=== PATIENT | male | born 1950 | race Caucasian/White ===

== ENCOUNTER → 2019-04-06 | Outpatient (CLI) | payer MEDICARE, OTHER ==
[2019-04-06 13:45] LABS: BLOOD UREA NITROGEN 14 MG/DL (7-18); CALCIUM LEVEL 9.2 MG/DL (8.8-10.2); CARBON DIOXIDE LEVEL 29 MEQ/L (21-32); CHLORIDE LEVEL 103 MEQ/L (98-107); CREATININE FOR GFR 1.08 MG/DL (0.70-1.30); GLOMERULAR FILTRATION RATE > 60.0 (>42); GLUCOSE, FASTING 97 MG/DL (70-100); POTASSIUM SERUM 4.2 MEQ/L (3.5-5.1); SODIUM LEVEL 139 MEQ/L (136-145)
[2019-04-06 14:51] LABS: BASO # 0.1 10^3/uL (0.0-0.2); BASO % 1.1 % (0.0-1.0); EOS # 0.3 10^3/uL (0.0-0.5); EOS % 3.9 % (0.0-3.0); HEMATOCRIT 40.9 % (42.0-52.0); HEMOGLOBIN 13.5 g/dl (13.5-17.5); LYMPH % 34.1 % (24.0-44.0); MEAN CORPUSCULAR HEMOGLOBIN 30.8 pg (27.0-33.0); MEAN CORPUSCULAR VOLUME 93.4 fl (80.0-96.0); MONO # 0.8 10^3/uL (0.0-0.8); MONO % 9.1 % (0.0-5.0); NEUTROPHILS # 4.3 10^3/uL (1.5-8.5); NEUTROPHILS % 48.4 % (36.0-66.0); PLATELET COUNT, AUTOMATED 192 10^3/uL (150-450); RED BLOOD COUNT 4.38 10^6/uL (4.30-6.10); WHITE BLOOD COUNT 8.8 10^3/uL (4.0-10.0)
== END ==
LOC: M LAB 12:12
PROVIDERS: ATTEND Internal Medicine Cardiovascular Disease
DX: I48.91 Unspecified atrial fibrillation (principal)

== ENCOUNTER → 2020-02-18 | Outpatient (CLI) | payer SELFPAY | LOC: M LABSMTC 13:41 | PROVIDERS: ATTEND Pediatrics | DX: Z20.828 Contact with and (suspected) exposure to other viral communicable diseases (principal) ==

== ENCOUNTER 2020-10-07 19:02 | Emergency (ER) | payer MEDICARE, OTHER ==
[~2020-10-07] VITALS: Ht 175.3 cm; Wt 120.1 kg
[2020-10-07 19:02] VITALS: BP 131/82
[2020-10-07] MEDS ORDERED: ASPI-264 PO (19:18)
[2020-10-07] MEDS ORDERED: XARE20TA PO (19:18)
[2020-10-07] MEDS ORDERED: VITMTA PO (19:18)
[2020-10-07] MEDS ORDERED: CARV12.5 PO (19:18)
[2020-10-07] MEDS ORDERED: LOSA50TA28 PO (19:18)
[2020-10-07] MEDS ORDERED: PHENYLEPHRINE 0.5% NASAL SPRAY 15 ML ONE (21:00)
[2020-10-07] MEDS ORDERED: HM S0.65 NARES (21:01)
== END 2020-10-07 21:33 | disposition home or self-care (01) ==
LOC: M ED 20:49
DX: S01.21XA Laceration without foreign body of nose, initial encounter (principal); W27.2XXA Contact with scissors, initial encounter; Y92.9 Unspecified place or not applicable; Y93.E8 Activity, other personal hygiene; Y99.9 Unspecified external cause status; I48.91 Unspecified atrial fibrillation; I10 Essential (primary) hypertension; F17.200 Nicotine dependence, unspecified, uncomplicated; Z79.82 Long term (current) use of aspirin; Z79.01 Long term (current) use of anticoagulants; Z79.899 Other long term (current) drug therapy

== ENCOUNTER → 2021-12-21 | Outpatient (CLI) | payer MEDICARE, OTHER ==
[~2021-12-21] MED LIST: ASPI-264 PO; ATOR40TA75 PO; CARV12.5 PO; CARV6.25 PO; ECOT81TA5 PO; HM S0.65 NARES; LOSA50TA28 PO; PEPC1TAB5 PO; VITMTA PO; XARE20TA PO
== END ==
LOC: M LABSMTC 10:11
PROVIDERS: ATTEND Anesthesiology
DX: Z01.812 Encounter for preprocedural laboratory examination (principal); Z11.52 Encounter for screening for COVID-19

== ENCOUNTER 2021-12-26 06:34 | Day surgery (SDC) | payer MEDICARE, OTHER ==
[~2021-12-26] VITALS: Ht 177.8 cm; Wt 115.7 kg
[~2021-12-26 06:34] MED LIST changes: +NS 1,000 ML IV ONE
[2021-12-26] MEDS ORDERED: fentaNYL 100 MCG/2 ML INJECTION As Ordered ONE (07:29)
[2021-12-26] MEDS ORDERED: propofoL 200 MG/20 ML VIAL As Ordered ONE (07:33)
[2021-12-26] MEDS ORDERED: LIDOCAINE 2% 100MG/5ML SDV (FOR ANES.) As Ordered ONE (07:33)
[2021-12-26 08:20] VITALS: BP 112/60
== END 2021-12-26 08:21 | disposition home or self-care (01) ==
LOC: M OPP 06:34
PROVIDERS: ATTEND Surgery
DX: Z12.11 Encounter for screening for malignant neoplasm of colon (principal); K63.5 Polyp of colon; K57.30 Diverticulosis of large intestine without perforation or abscess without bleeding; K21.00 Gastro-esophageal reflux disease with esophagitis, without bleeding; K29.70 Gastritis, unspecified, without bleeding; K31.89 Other diseases of stomach and duodenum; Z79.2 Long term (current) use of antibiotics; Z79.01 Long term (current) use of anticoagulants; Z79.82 Long term (current) use of aspirin; Z79.899 Other long term (current) drug therapy; E78.00 Pure hypercholesterolemia, unspecified; I10 Essential (primary) hypertension; I48.91 Unspecified atrial fibrillation; G47.30 Sleep apnea, unspecified; Z99.89 Dependence on other enabling machines and devices; Z91.010 Allergy to peanuts; Z87.891 Personal history of nicotine dependence; Z80.43 Family history of malignant neoplasm of testis
CPT/HCPCS: 43239; 45380; 88305; J3010

== ENCOUNTER 2024-10-16 05:57 | Day surgery (SDC) | payer MEDICARE, OTHER ==
[~2024-10-16] VITALS: Ht 175.3 cm; Wt 105.3 kg
[~2024-10-16 05:57] MED LIST changes: -HM S0.65 NARES; +MULTTAB61 PO; -NS 1,000 ML IV ONE; +PANT40TA29 PO; +PARO5TAB PO; +SALI0.6531 NARES
[2024-10-16] MEDS: GLUCAGON INJ 1 MG VIAL As Ordered ONE (07:10)
[2024-10-16] MEDS ORDERED: ONDANSETRON 4MG 2ML VIAL As Ordered ONE (07:14)
[2024-10-16] MEDS ORDERED: ROCURONIUM BROMIDE 50MG/5ML VIAL As Ordered ONE (07:14)
[2024-10-16] MEDS ORDERED: LIDOCAINE 2% 100 MG/5 ML SDV (FOR ANES.) As Ordered ONE (07:14)
[2024-10-16] MEDS ORDERED: dexAMETHasone 4 MG/ML 1 ML VIAL As Ordered ONE (07:14)
[2024-10-16] MEDS: ceFAZolin SOD 2 GM IV ONCE IV ONE (07:32)
[2024-10-16] MEDS ORDERED: VASOPRESSIN INJ 20UNITS/ML 1ML VIAL As Ordered ONE (07:49)
[2024-10-16] MEDS ORDERED: PHENYLephrine 500MCG 5ML (100MCG/ML) SYRINGE As Ordered ONE (08:33)
[2024-10-16] MEDS ORDERED: KETOROLAC 30 MG/ML 1 ML VIAL As Ordered ONE (08:42)
[2024-10-16] MEDS ORDERED: ACETAMINOPHEN 1000MG/100ML IV BAG As Ordered ONE (08:42)
[2024-10-16] MEDS ORDERED: ONDANSETRON 4MG 2ML VIAL IV PRN (08:55)
[2024-10-16] MEDS ORDERED: HYDROMORPHONE HCL 0.5 MG/0.5 ML SYRINGE IV PRN (08:55)
[2024-10-16] MEDS ORDERED: LR 1,000 ML IV SCH (08:55)
[2024-10-16 10:33] VITALS: BP 105/51; TEMP 97.3; O2SAT 94
== END 2024-10-16 10:35 | disposition home or self-care (01) ==
LOC: M SDC 05:57
PROVIDERS: ATTEND Surgery
DX: K80.20 Calculus of gallbladder without cholecystitis without obstruction (principal); I48.91 Unspecified atrial fibrillation; I25.10 Atherosclerotic heart disease of native coronary artery without angina pectoris; I10 Essential (primary) hypertension; E78.5 Hyperlipidemia, unspecified; K21.9 Gastro-esophageal reflux disease without esophagitis; Z79.01 Long term (current) use of anticoagulants; Z79.899 Other long term (current) drug therapy; Z98.61 Coronary angioplasty status; Z87.891 Personal history of nicotine dependence; Z91.010 Allergy to peanuts
CPT/HCPCS: 47562; 88304; J0131; J0665; J0690; J1100; J1885; J2371; J2405; J2598; J3010

== ENCOUNTER → 2025-01-27 | Outpatient (CLI) | payer MEDICARE, OTHER ==
[~2025-01-27] MED LIST changes: +ACETAMINOPHEN 325 MG TAB PO PRN
[2025-01-27 08:25] VITALS: TEMP 97.8
[2025-01-27 10:18] LABS: PLEURAL FL COLOR YELLOW (COLORLESS); SOURCE, BODY FLUID PLEURAL
[2025-01-27 10:19] LABS: APPEARANCE, BODY FLUID HAZY (CLEAR)
[2025-01-27 10:23] LABS: PLATELET COUNT, AUTOMATED 353 10^3/uL (150-450)
[2025-01-27 10:24] LABS: BASO # 0.1 10^3/uL (0.0-0.2); BASO % 0.9 % (0.0-1.0); EOS # 0.2 10^3/uL (0.0-0.5); EOS % 3.6 % (0.0-3.0); LYMPH # 1.4 10^3/uL (1.5-5.0); LYMPH % 22.2 % (24.0-44.0); MONO # 0.7 10^3/uL (0.0-0.8); MONO % 10.7 % (2.0-8.0); NEUTROPHILS # 3.8 10^3/uL (1.5-8.5); NEUTROPHILS % 60.5 % (36.0-66.0); PLATELET COUNT, AUTOMATED 373 10^3/uL (150-450)
[2025-01-27 10:25] LABS: PH BODY FLUID 7.658 UNITS (NOT ESTABLISHED); SOURCE, BODY FLUID pH PLEURAL
[2025-01-27 10:47] LABS: LDH LACTATE DEHYDROGENASE 159.0 U/L (120-246)
[2025-01-27 10:48] LABS: C REACTIVE PROTEIN QUANTITATIV 3.28 MG/DL (<1.0)
[2025-01-27 10:49] LABS: ALT/SGPT 16.0 U/L (7.0-40); AST/SGOT 21.0 U/L (<34); CALCIUM LEVEL 9.3 MG/DL (8.3-10.6); CARBON DIOXIDE LEVEL 30.0 MMOL/L (20-31); CHLORIDE LEVEL 100.0 MMOL/L (98-107); CREATININE FOR GFR 1.02 MG/DL (0.70-1.30); GLOMERULAR FILTRATION RATE 76.2 (>42); INR 1.02; POTASSIUM SERUM 4.3 MMOL/L (3.5-5.1); RHEUMATOID FACTOR QUANT < 3.5 IU/ML (<14); SODIUM LEVEL 139.0 MMOL/L (136-145)
[2025-01-27 11:15] VITALS: BP 131/81; O2SAT 97
[2025-01-29 20:41] LABS: RNP ANTIBODY <1.0 NEG AI (<1.0 NEG); SSA SJOGRENS A <1.0 NEG AI (<1.0 NEG); SSB SJOGRENS B <1.0 NEG AI (<1.0 NEG)
[2025-02-01 17:58] LABS: ANTI DS-DNA AB Negative (Negative)
[2025-02-02 18:07] LABS: ANTI NEUTROPHIL AB BY FLOW CYT NONE DETECTED (NONE DETECTED)
== END ==
LOC: M IRPRO 08:22
PROVIDERS: ATTEND Internal Medicine Pulmonary Disease
DX: J90 Pleural effusion, not elsewhere classified (principal); Z79.01 Long term (current) use of anticoagulants

== ENCOUNTER 2025-02-06 21:01 | Emergency (ER) | payer MEDICARE, OTHER ==
[~2025-02-06] VITALS: Ht 175.3 cm; Wt 102.1 kg
[~2025-02-06 21:01] MED LIST changes: -ACETAMINOPHEN 325 MG TAB PO PRN
[2025-02-06] MEDS ORDERED: CEFD1CAP9 (21:16)
[2025-02-06] MEDS ORDERED: METO1TAB32 (21:16)
[2025-02-06] MEDS: LEVALBUTEROL 1.25 MG 0.5ML CONCENTRATE NEB NEB ONE (21:50)
[2025-02-06 21:58] LABS: BASO # 0.1 10^3/uL (0.0-0.2); BASO % 0.9 % (0.0-1.0); EOS # 0.3 10^3/uL (0.0-0.5); EOS % 2.7 % (0.0-3.0); LYMPH # 2.2 10^3/uL (1.5-5.0); LYMPH % 23.7 % (24.0-44.0); MONO # 1.0 10^3/uL (0.0-0.8); MONO % 11.1 % (2.0-8.0); NEUTROPHILS # 5.5 10^3/uL (1.5-8.5); NEUTROPHILS % 58.7 % (36.0-66.0); PLATELET COUNT, AUTOMATED 384 10^3/uL (150-450)
[2025-02-06 22:32] LABS: CALCIUM LEVEL 9.2 MG/DL (8.3-10.6); CARBON DIOXIDE LEVEL 30.0 MMOL/L (20-31); CHLORIDE LEVEL 98.0 MMOL/L (98-107); CK-MB VALUE MASS 1.5 NG/ML (<3.6); CREATININE FOR GFR 0.87 MG/DL (0.70-1.30); GLOMERULAR FILTRATION RATE 89.4 (>42); MAGNESIUM LEVEL 2.0 MG/DL (1.8-2.4); POTASSIUM SERUM 4.2 MMOL/L (3.5-5.1); SODIUM LEVEL 138.0 MMOL/L (136-145)
[2025-02-06 22:45] LABS: CPK CREATINE PHOSPHOKINASE 35.0 U/L (46-171); MB/CK RELATIVE INDEX 4.28 (< OR =4)
[2025-02-07] VITALS: BP 124/80; TEMP 98.3; O2SAT 95
== END 2025-02-07 00:10 | disposition home or self-care (01) ==
LOC: M ED 21:01
DX: R06.02 Shortness of breath (principal); I48.91 Unspecified atrial fibrillation; I10 Essential (primary) hypertension; J44.9 Chronic obstructive pulmonary disease, unspecified; E78.5 Hyperlipidemia, unspecified; K21.9 Gastro-esophageal reflux disease without esophagitis; Z79.01 Long term (current) use of anticoagulants; Z79.82 Long term (current) use of aspirin; Z79.899 Other long term (current) drug therapy; Z91.010 Allergy to peanuts

== ENCOUNTER → 2025-03-01 | Outpatient (CLI) | payer OTHER ==
[~2025-03-01] MED LIST changes: +CEFD1CAP9; +METO1TAB32
== END ==
LOC: M PLARAD 10:16
PROVIDERS: ATTEND Surgery
DX: C45.0 Mesothelioma of pleura (principal)